=== PATIENT | male | born 1930 | race Caucasian/White ===

== ENCOUNTER 2020-08-15 18:17 | Inpatient (IN) | payer OTHER, SELFPAY ==
[~2020-08-15] VITALS: Ht 172.7 cm; Wt 79.6 kg
[2020-08-15 18:17] VITALS: BP_SYST 158
[2020-08-15] MEDS ORDERED: TAMS0.4C96 PO (18:29)
[2020-08-15] MEDS ORDERED: FINA5TAB3 PO (18:29)
[2020-08-15] MEDS ORDERED: AMIO100T4 PO (18:29)
[2020-08-15] MEDS ORDERED: RENA-VITE PO (18:29)
[2020-08-15] MEDS ORDERED: PRO40 PO (18:29)
[2020-08-15] MEDS ORDERED: APIX2.5T PO (18:29)
[2020-08-15] MEDS ORDERED: CARV25TA55 PO (18:29)
[2020-08-15] MEDS ORDERED: IPRATROPIUM/ALBUTEROL SULFATE 3 ML AMPUL.NEB (DUONEB) INH ONE (18:30)
[2020-08-15] MEDS ORDERED: NS 500 ML IV ONE (18:30)
[2020-08-15] MEDS ORDERED: ONDANSETRON HCL 4 MG/2 ML VIAL IVP ONE (18:45)
[2020-08-15 18:49] LABS: BASOPHILS % (AUTO) 0.2 % (0.0-2.0); EOSINOPHILS # (AUTO) 0.1 K/uL (0.0-0.4); EOSINOPHILS % (AUTO) 0.6 % (0.0-4.0); HEMOGLOBIN 13.4 g/dL (14.0-18.0); LYMPHOCYTES # (AUTO) 0.7 K/uL (1.0-5.5); LYMPHOCYTES % (AUTO) 5.2 % (20.5-51.5); MEAN CORPUSCULAR HEMOGLOBIN 32 pg (27-31); MEAN CORPUSCULAR HGB CONC 33 % (32-36); MEAN CORPUSCULAR VOLUME 98 fL (79.0-98.0); MONOCYTES # (AUTO) 0.9 K/uL (0.0-1.0); MONOCYTES % (AUTO) 6.8 % (1.7-9.3); NEUTROPHILS # (AUTO) 12.1 K/uL (1.8-7.7); NEUTROPHILS % (AUTO) 87.2 % (40.0-70.0); PLATELET COUNT (AUTO) 202 K/uL (130-430); RED BLOOD CELL COUNT(AUTO) 4.19 MIL/uL (4.2-6.2); RED CELL DISTRIBUTION WIDTH 13.1 % (9.0-15.0); WHITE BLOOD COUNT (AUTO) 13.8 K/uL (4.8-10.8)
[2020-08-15 19:09] LABS: ANION GAP 10 (5-15); CALCIUM 9.3 mg/dL (8.4-11.0); CHLORIDE 98 mmol/L (98-107); CREATININE 4.25 mg/dL (0.55-1.30); GLUCOSE 104 mg/dL (70-99); POTASSIUM 4.8 mmol/L (3.5-5.1); SODIUM SERUM 137 mmol/L (136-145); UREA NITROGEN, BLOOD 29 mg/dL (8-21)
[2020-08-15 19:14] LABS: ALANINE AMINOTRANSFERASE 16 U/L (12-78); ALBUMIN 2.9 g/dL (3.4-4.8); ASPARTATE AMINOTRANSFERASE 30 U/L (10-37); TOTAL BILIRUBIN 0.6 mg/dL (0.0-1.0)
[2020-08-15] MEDS ORDERED: AZITHROMYCIN 500 MG in NS 250 ML IV ONE (20:15)
[2020-08-15] MEDS ORDERED: DEXAMETHASONE SOD PHOSPHATE 4 MG/ML VIAL IVP ONE (20:15)
[2020-08-15] MEDS ORDERED: cefTRIAXone 1 GM in D5W 50 ML IV ONE (20:15)
[2020-08-15] MEDS ORDERED: cefTRIAXone 1 GM VIAL ONE (20:30)
[2020-08-15] MEDS ORDERED: AZITHROMYCIN 500 MG/VIAL (ZITHROMAX) IV ONE ×2 (20:30→20:32)
[2020-08-15 20:47] LABS: BILIRUBIN,URINE NEGATIVE (NEGATIVE); CLARITY/URINE CLEAR (CLEAR); COLOR,URINE YELLOW (YELLOW); GLUCOSE,URINE NEGATIVE (NEGATIVE); KETONES,URINE NEGATIVE (NEGATIVE); LEUKOCYTE ESTERASE ,URINE TRACE (NEGATIVE); NITRITE, URINE NEGATIVE (NEGATIVE); PH,URINE 8.5 (5.0-8.0); PROTEIN URINE 2+ (NEGATIVE); UROBILINOGEN,URINE 0.2 (0.2-1.0)
[2020-08-15 21:15] LABS: BLOOD, URINE TRACE (NEGATIVE)
[2020-08-15 21:35] LABS: BACTERIA,URINE FEW /HPF (None Seen); RBC,URINE 0-3 /HPF (0-3); WBC,URINE 0-3 /HPF (0-3)
[2020-08-15 21:36] LABS: MUCUS,URINE None Seen /LPF (None Seen)
[2020-08-15 22:30] VITALS: BP_SYST 118
[2020-08-16] MEDS ORDERED: ACETAMINOPHEN 325 MG TABLET PO PRN
[2020-08-16 00:02] VITALS: BP_SYST 110
[2020-08-16 00:45] VITALS: BP_SYST 118
[2020-08-16] MEDS: ALBUTEROL SULFATE 0.083% 2.5 MG/3 ML VIAL.NEB INH SCH ×5 (03:34→19:00)
[2020-08-16 06:35] LABS: BASOPHILS # (AUTO) 0.1 K/uL (0.0-0.2); BASOPHILS % (AUTO) 1.2 % (0.0-2.0); HEMATOCRIT 34.7 % (36-54); HEMOGLOBIN 11.7 g/dL (14.0-18.0); LYMPHOCYTES # (AUTO) 1.8 K/uL (1.0-5.5); LYMPHOCYTES % (AUTO) 14.9 % (20.5-51.5); MEAN CORPUSCULAR HEMOGLOBIN 33 pg (27-31); MEAN CORPUSCULAR HGB CONC 34 % (32-36); MEAN CORPUSCULAR VOLUME 97 fL (79.0-98.0); MONOCYTES # (AUTO) 0.2 K/uL (0.0-1.0); MONOCYTES % (AUTO) 1.4 % (1.7-9.3); NEUTROPHILS % (AUTO) 82.5 % (40.0-70.0); PLATELET COUNT (AUTO) 179 K/uL (130-430); RED BLOOD CELL COUNT(AUTO) 3.58 MIL/uL (4.2-6.2); WHITE BLOOD COUNT (AUTO) 12.1 K/uL (4.8-10.8)
[2020-08-16 07:17] LABS: ALANINE AMINOTRANSFERASE 14 U/L (12-78); ALBUMIN 2.5 g/dL (3.4-4.8); ANION GAP 7 (5-15); ASPARTATE AMINOTRANSFERASE 19 U/L (10-37); CALCIUM 8.8 mg/dL (8.4-11.0); CHLORIDE 101 mmol/L (98-107); CREATININE 5.07 mg/dL (0.55-1.30); GLUCOSE 141 mg/dL (70-99); POTASSIUM 5.1 mmol/L (3.5-5.1); SODIUM SERUM 137 mmol/L (136-145); TOTAL BILIRUBIN 0.4 mg/dL (0.0-1.0); UREA NITROGEN, BLOOD 39 mg/dL (8-21)
[2020-08-16 07:45] VITALS: BP_SYST 104
[2020-08-16] MEDS: AMIODARONE HCL 200 MG TABLET PO SCH (09:01)
[2020-08-16] MEDS: TAMSULOSIN HCL 0.4 MG CAP PO SCH (09:02)
[2020-08-16] MEDS: CARVEDILOL 25 MG TABLET (COREG) PO SCH ×2 (09:02→21:07)
[2020-08-16] MEDS: APIXABAN 2.5 MG TABLET PO SCH ×2 (09:02→20:56)
[2020-08-16] MEDS: PANTOPRAZOLE SODIUM 40 MG TAB PO SCH (09:03)
[2020-08-16] MEDS: FINASTERIDE 5 MG TABLET (PROSCAR) PO SCH (09:03)
[2020-08-16 12:00] VITALS: BP_SYST 110
[2020-08-16 16:48] VITALS: BP_SYST 101
[2020-08-16] MEDS ORDERED: AZITHROMYCIN 500 MG in NS 250 ML IV SCH (21:00)
[2020-08-17] MEDS: ALBUTEROL SULFATE 0.083% 2.5 MG/3 ML VIAL.NEB INH SCH ×7 (00:10→23:47)
[2020-08-17 01:05] VITALS: BP_SYST 144
[2020-08-17 08:00] VITALS: BP_SYST 124
[2020-08-17] MEDS: FINASTERIDE 5 MG TABLET (PROSCAR) PO SCH (09:28)
[2020-08-17] MEDS: PANTOPRAZOLE SODIUM 40 MG TAB PO SCH (09:28)
[2020-08-17] MEDS: TAMSULOSIN HCL 0.4 MG CAP PO SCH (09:28)
[2020-08-17] MEDS: CARVEDILOL 25 MG TABLET (COREG) PO SCH ×2 (09:29→22:19)
[2020-08-17] MEDS: AMIODARONE HCL 200 MG TABLET PO SCH (09:29)
[2020-08-17] MEDS: APIXABAN 2.5 MG TABLET PO SCH ×2 (09:30→22:18)
[2020-08-17 12:20] VITALS: BP_SYST 145
[2020-08-17 16:00] VITALS: BP_SYST 114
[2020-08-17 20:00] VITALS: BP_SYST 131
[2020-08-17] MEDS ORDERED: AZITHROMYCIN 250 MG TABLET PO SCH (22:15)
[2020-08-17] MEDS ORDERED: CEPHALEXIN 250 MG/5 ML, 100 ML BTL PO SCH (23:15)
[2020-08-17] MEDS ORDERED: cephALEXin 500 MG CAPSULE PO ONE (23:47)
[2020-08-18] VITALS: BP_SYST 118
[2020-08-18] MEDS: ALBUTEROL SULFATE 0.083% 2.5 MG/3 ML VIAL.NEB INH SCH ×3 (03:00→11:15)
[2020-08-18] MEDS: cephALEXin 500 MG CAPSULE PO SCH ×2 (05:31→12:26)
[2020-08-18 08:00] VITALS: BP_SYST 127
[2020-08-18] MEDS: PANTOPRAZOLE SODIUM 40 MG TAB PO SCH (08:25)
[2020-08-18] MEDS: TAMSULOSIN HCL 0.4 MG CAP PO SCH (08:25)
[2020-08-18] MEDS: APIXABAN 2.5 MG TABLET PO SCH (08:27)
[2020-08-18] MEDS: FINASTERIDE 5 MG TABLET (PROSCAR) PO SCH (08:30)
[2020-08-18] MEDS: CARVEDILOL 25 MG TABLET (COREG) PO SCH (09:00)
[2020-08-18] MEDS: AMIODARONE HCL 200 MG TABLET PO SCH (10:06)
[2020-08-18 12:31] VITALS: BP_SYST 129
[2020-08-18] MEDS ORDERED: AZIT500T10 PO (12:49)
[2020-08-18] MEDS ORDERED: Z PACK (12:56)
[2020-08-18] MEDS ORDERED: Z-PACK PO (12:57)
[2020-08-18] MEDS ORDERED: CEPH500C2 PO (12:58)
[2020-08-18 13:44] VITALS: BP_SYST 131
== END 2020-08-18 15:16 | disposition home or self-care (01) | DRG 871 ==
LOC: SED 18:17 → EDBD 18:17 → STU 21:38
PROVIDERS: ADMIT Internal Medicine Hospice and Palliative Medicine; ATTEND Internal Medicine Hospice and Palliative Medicine
PROC: 5A1D70Z Performance of Urinary Filtration, Intermittent, Less than 6 Hours Per Day (ICD-10-PCS; principal; 2020-08-17)
DX: A41.9 Sepsis, unspecified organism (principal); N18.6 End stage renal disease; J96.01 Acute respiratory failure with hypoxia; J18.9 Pneumonia, unspecified organism; I12.0 Hypertensive chronic kidney disease with stage 5 chronic kidney disease or end stage renal disease; J90 Pleural effusion, not elsewhere classified; I69.351 Hemiplegia and hemiparesis following cerebral infarction affecting right dominant side; Z20.828 Contact with and (suspected) exposure to other viral communicable diseases; I69.392 Facial weakness following cerebral infarction; Z79.899 Other long term (current) drug therapy
CPT/HCPCS: 36415; 36600; 70450-TC; 71045; 80053; 81000-TC; 82803-TC; 83605; 84484; 85025; 87040-TC; 87081; 90935; 93005; 94640; 94760; 96361; 96365; 96367; 96375; 99285; G0378; J0456; J0696; J1100; J2405; J7030; J7050; J7060; J7613; Q0144; U0003-CS